=== PATIENT | male | born 1960 | race Caucasian/White ===

== ENCOUNTER 2021-07-22 19:00 | Outpatient (CLI) | payer BC | END 2021-07-22 19:01 | disposition home or self-care (01) | LOC: SLEEPLAB 19:00 | PROVIDERS: ATTEND Internal Medicine Critical Care Medicine | DX: G47.33 Obstructive sleep apnea (adult) (pediatric) (principal); R53.83 Other fatigue; R06.83 Snoring; I10 Essential (primary) hypertension; R06.02 Shortness of breath; G47.00 Insomnia, unspecified; R09.02 Hypoxemia | CPT/HCPCS: 95810 ==

== ENCOUNTER 2021-10-13 19:00 | Outpatient (CLI) | payer BC | END 2021-10-13 19:01 | disposition home or self-care (01) | LOC: SLEEPLAB 19:00 | PROVIDERS: ATTEND Internal Medicine Critical Care Medicine | DX: G47.33 Obstructive sleep apnea (adult) (pediatric) (principal); R53.83 Other fatigue; R06.83 Snoring; G47.10 Hypersomnia, unspecified; E66.9 Obesity, unspecified; Z68.41 Body mass index [BMI] 40.0-44.9, adult | CPT/HCPCS: 95811 ==

== ENCOUNTER 2025-05-16 08:10 | Inpatient (IN) | payer MEDICARE, OTHER ==
[2025-05-16 09:17] LABS: #Basophils Less than 0.03 10x3/uL (0.0-0.2); #Eosinophils 0.13 10x3/uL (0.0-0.7); #Monocytes 0.66 10x3/uL (0.11-0.59); #Neutrophils 4.12 10x3/uL (1.40-6.50); %Basophils 0.3 % (0.0-1.0); %Eosinophils 2.2 % (0.0-10.0); %Lymphocytes 14.9 % (21.0-51.0); %Monocytes 11.3 % (0.0-10.0); %Neutrophils 70.4 % (42.0-75.0); Hematocrit 28.9 % (42.0-52.0); Hemoglobin 9.1 g/dL (14.0-18.0); Mean Corpuscular HGB CONC 31.5 g/dL (32.0-36.0); Mean Corpuscular Hemoglobin 28.4 pg (27.0-31.0); Mean Corpuscular Volume 90.3 fL (78.0-98.0); Mean Platelet Volume 8.3 fL (7.4-10.4); Platelet Count 314 10x3/uL (130-400); RBC Distribution Width 18.9 % (11.5-14.5); White Blood Cell (WBC) Count 5.85 10x3/uL (4.8-10.8)
[2025-05-16] MEDS ORDERED: Iopamidol-370 76% 500 ML MDV (1 ML CHARGE) ONE (09:20)
[2025-05-16 09:31] LABS: INR-International Normal Ratio 1.1; PTT 29.7 sec (22.9-36.1); Prothrombin Time 13.9 sec (12.0-14.7)
[2025-05-16 09:37] LABS: ALT (SGPT) Less than 7 U/L (Less than 45); AST (SGOT) 26 U/L (11-34); Albumin 2.1 g/dL (3.1-4.5); Alkaline Phosphatase 56 U/L (40-110); Anion Gap 11 mmol/L (10-20); BUN (Urea Nitrogen) 10 mg/dL (8.4-25.7); Bilirubin, Total 0.2 mg/dL (0.3-1.2); Calc. Creatinine Clearance 0 mL/min (70-130); Calcium 8.6 mg/dL (7.8-10.44); Carbon Dioxide 22 mmol/L (23-31); Chloride 112 mmol/L (98-107); Estimated GFR 101; Globulin 4.1 g/dL (2.4-3.5); Glucose 85 mg/dL (80-115); Lipase 38 U/L (8-78); Potassium 3.9 mmol/L (3.5-5.1); Protein, Total 6.2 g/dL (5.8-8.1); Sodium 141 mmol/L (136-145)
[2025-05-16 09:40] LABS: Troponin I Less than 0.010 ng/mL (< 0.028)
[2025-05-16] MEDS ORDERED: Vancomycin 1 GM/200 ML (FROZEN) BAG ONE (09:56)
[2025-05-16] MEDS ORDERED: Piperacillin/Tazobactam 4.5 GM VIAL ONE (09:56)
[2025-05-16] MEDS ORDERED: Sodium Chloride 0.9% 100 ML ONE (09:56)
[2025-05-16] MEDS ORDERED: NOREPINEPHRINE 8 MG/250 ML-D5W 250 ML ONE (12:03)
[2025-05-16] MEDS ORDERED: Acetaminophen 325 MG TAB PO PRN (13:40)
[2025-05-16] MEDS ORDERED: NOREPINEPHRINE 8 MG/250 ML-D5W 250 ML IVPB PRN (13:40)
[2025-05-16] MEDS ORDERED: Ondansetron PF 4 MG/2 ML Vial IVP PRN (13:40)
[2025-05-16 16:54] VITALS: BMI 31.1
[2025-05-16] MEDS: Piperacillin/Tazobactam 3.375 GM in Sodium Chloride 0.9% 100 ML IVPB SCH (17:11)
[2025-05-16] MEDS: Sodium Chloride 0.9% 1,000 ML IV SCH (17:11)
[2025-05-16] MEDS: Vancomycin 1.5 GM / NS 500ML VIAL-2-BAG IVPB SCH (18:13)
[2025-05-16] MEDS: Famotidine 20 MG TAB PO SCH (21:24)
[2025-05-17 04:44] LABS: #Basophils Less than 0.03 10x3/uL (0.0-0.2); #Eosinophils 0.34 10x3/uL (0.0-0.7); #Monocytes 0.51 10x3/uL (0.11-0.59); #Neutrophils 1.81 10x3/uL (1.40-6.50); %Basophils 0.6 % (0.0-1.0); %Lymphocytes 20.5 % (21.0-51.0); Hematocrit 27.3 % (42.0-52.0); Hemoglobin 8.4 g/dL (14.0-18.0); Mean Corpuscular HGB CONC 30.8 g/dL (32.0-36.0); Mean Platelet Volume 8.5 fL (7.4-10.4); Platelet Count 283 10x3/uL (130-400); RBC Distribution Width 19.4 % (11.5-14.5); White Blood Cell (WBC) Count 3.41 10x3/uL (4.8-10.8)
[2025-05-17 05:11] LABS: Vancomycin, Random 15.1 ug/mL (See Comment)
[2025-05-17 05:15] LABS: ALT (SGPT) Less than 7 U/L (Less than 45); AST (SGOT) 22 U/L (11-34); Alkaline Phosphatase 52 U/L (40-110); Anion Gap 11 mmol/L (10-20); BUN (Urea Nitrogen) 9 mg/dL (8.4-25.7); Bilirubin, Total 0.3 mg/dL (0.3-1.2); Calc. Creatinine Clearance 145 mL/min (70-130); Calcium 8.6 mg/dL (7.8-10.44); Carbon Dioxide 21 mmol/L (23-31); Chloride 114 mmol/L (98-107); Estimated GFR 101; Globulin 3.7 g/dL (2.4-3.5); Glucose 80 mg/dL (80-115); Potassium 3.8 mmol/L (3.5-5.1); Protein, Total 5.7 g/dL (5.8-8.1); Sodium 142 mmol/L (136-145)
[2025-05-17] MEDS: Vancomycin 1.25 GM / NS 250 ML VIAL-2-BAG IVPB SCH (05:38)
[2025-05-17] MEDS: Sodium Chloride 0.9% 100 ML ONE (08:37)
[2025-05-17] MEDS: Enoxaparin 40 MG (0.4 mL) SYRINGE SC SCH (08:38)
[2025-05-17] MEDS: Oxacillin 1 GM in Sodium Chloride 0.9% 100 ML IVPB SCH (16:29)
[2025-05-17] MEDS ORDERED: Vancomycin 1.5 GM / NS 500ML VIAL-2-BAG IVPB SCH (18:00)
[2025-05-17] MEDS: Apixaban 5 MG TAB PO SCH (20:57)
[2025-05-17] MEDS: Rosuvastatin 20 MG TAB PO SCH (20:57)
[2025-05-18 05:43] LABS: #Basophils Less than 0.03 10x3/uL (0.0-0.2); #Eosinophils 0.36 10x3/uL (0.0-0.7); #Monocytes 0.63 10x3/uL (0.11-0.59); #Neutrophils 2.23 10x3/uL (1.40-6.50); %Basophils 0.5 % (0.0-1.0); %Monocytes 15.8 % (0.0-10.0); %Neutrophils 55.9 % (42.0-75.0); Hematocrit 25.3 % (42.0-52.0); Mean Corpuscular HGB CONC 31.6 g/dL (32.0-36.0); Mean Corpuscular Volume 88.5 fL (78.0-98.0); Mean Platelet Volume 8.4 fL (7.4-10.4); Platelet Count 237 10x3/uL (130-400); RBC Distribution Width 18.5 % (11.5-14.5); Red Blood Cell (RBC) Count 2.86 mill/uL (4.70-6.10); White Blood Cell (WBC) Count 3.99 10x3/uL (4.8-10.8)
[2025-05-18 05:59] LABS: Anion Gap 7 mmol/L (10-20); BUN (Urea Nitrogen) 8 mg/dL (8.4-25.7); Calc. Creatinine Clearance 110 mL/min (70-130); Calcium 8.6 mg/dL (7.8-10.44); Carbon Dioxide 25 mmol/L (23-31); Chloride 113 mmol/L (98-107); Estimated GFR 92; Glucose 97 mg/dL (80-115); Potassium 3.4 mmol/L (3.5-5.1); Sodium 142 mmol/L (136-145)
[2025-05-18 06:00] LABS: CRP,High Sensitivity (Inhouse) 1.53 mg/dL (< or = 0.5)
[2025-05-18] MEDS ORDERED: Electrolyte Replacement Protocol 1 EACH FS SCH (08:31)
[2025-05-18] MEDS: Potassium Bicarbonate/Cit Ac 20 MEQ TAB PO SCH (09:20)
[2025-05-18] MEDS: Cyanocobalamin (Vitamin B-12) 1,000 MCG TAB PO SCH (09:20)
[2025-05-18] MEDS: Cholecalciferol 1,000 UNITS (25 MCG) TAB PO SCH (09:20)
[2025-05-18 13:16] VITALS: BP 118/67; TEMP 98.4
[2025-05-18] MEDS ORDERED: Lidocaine 1% PF 5 ML VIAL ONE (15:35)
[2025-05-18] MEDS ORDERED: Sodium Bicarbonate 2.5 MEQ/5 ML SDV ONE (15:35)
== END 2025-05-18 20:30 | DRG 312 ==
LOC: ERS 08:10 → IMCU/EMU 13:43 → T4-B 05-17 18:58
PROVIDERS: ADMIT Internal Medicine; ATTEND Internal Medicine
PROC: 02HV33Z Insertion of Infusion Device into Superior Vena Cava, Percutaneous Approach (ICD-10-PCS; principal; 2025-05-18)
PROC: B5181ZA Fluoroscopy of Superior Vena Cava using Low Osmolar Contrast, Guidance (ICD-10-PCS; 2025-05-18)
DX: I95.2 Hypotension due to drugs (principal); R57.1 Hypovolemic shock; E87.5 Hyperkalemia; E11.9 Type 2 diabetes mellitus without complications; C61 Malignant neoplasm of prostate; Z96.641 Presence of right artificial hip joint; G47.33 Obstructive sleep apnea (adult) (pediatric); M10.9 Gout, unspecified; E78.5 Hyperlipidemia, unspecified; N40.0 Benign prostatic hyperplasia without lower urinary tract symptoms; D63.8 Anemia in other chronic diseases classified elsewhere; Z87.891 Personal history of nicotine dependence; Z98.890 Other specified postprocedural states; Z79.899 Other long term (current) drug therapy; T50.995A Adverse effect of other drugs, medicaments and biological substances, initial encounter
CPT/HCPCS: 36415; 36556; 36573; 71045; 71275; 74177; 80048; 80053; 80202; 82533; 83605; 83690; 84484; 85025; 85610; 85730; 86141; 87040; 93005; 96361; 96374; 96375; C1751; J1650; J2543; J2700; J3370; J7030; J7050; Q9967